=== PATIENT | female | born 1980 | race Caucasian/White ===

== ENCOUNTER 2019-04-12 16:09 | Emergency (ER) | payer OTHER ==
[~2019-04-12] VITALS: Ht 165.1 cm; Wt 83.9 kg
== END 2019-04-12 19:52 | disposition home or self-care (01) ==
LOC: ED 16:09 → ER 16:11 → ED 19:52
DX: R10.9 Unspecified abdominal pain (principal)
CPT/HCPCS: 74177; 80053; 81001; 83690; 84703; 85025; 99284-25